=== PATIENT | male | born 1995 | race Caucasian/White ===

== ENCOUNTER 2023-05-03 09:25 | Outpatient (CLI) | payer OTHER ==
--- NOTE | 2023-05-03 10:17 | XRAY Report ---
PROCEDURE: AC Joints INDICATIONS: UPPER EXTREMITY NEUROPATHY, SPRAIN LT AC JOINT TECHNIQUE: 2 views each of both acromioclavicular joints were acquired. COMPARISON: None FINDINGS: Bones: No fractures or dislocations. Weightbearing views demonstrate normal acromioclavicular joint alignment as well. No suspicious bony lesions. Superior ribs appear normal. Soft tissues: No suspicious soft tissue calcifications. IMPRESSION: No acute fracture or dislocation. The AC joints are symmetric. Reviewed by: Presley Richmond MD on 05/03/2023 10:16 AM [facility] Approved by: Presley Richmond MD on 05/03/2023 10:16 AM PST Station ID: [id number]
--- NOTE | 2023-05-03 13:11 | XRAY Report ---
PROCEDURE: Shoulder 3 View LT INDICATIONS: UPPER EXTREMITY NEUROPATHY, SPRAIN LT AC JOINT TECHNIQUE: 3 views of the shoulder were acquired. COMPARISON: AC joints from the same date. FINDINGS: Bones: No fractures or dislocations. No suspicious bony lesions. Visualized ribs appear intact. There is no AC joint abnormality noted. Soft tissues: No suspicious soft tissue calcifications. The visualized lungs are within normal limi ts. IMPRESSION: No acute bony abnormality. Reviewed by: Lucho Shell MD on 05/03/2023 1:10 PM PST Approved by: Lucho Shell MD on 05/03/2023 1:10 PM PST Station ID: [id number]
== END 2023-05-03 09:26 | disposition home or self-care (01) ==
LOC: DI 09:25
PROVIDERS: ATTEND Registered Nurse
DX: G56.90 Unspecified mononeuropathy of unspecified upper limb (principal); S43.5 Sprain of acromioclavicular joint